=== PATIENT | female | born 1955 | race Caucasian/White ===

== ENCOUNTER → 2017-09-03 | Outpatient (CLI) | payer OTHER ==
[~2017-09-03] MED LIST: BENTYL20 MG PO; CALCIUM 500 + D1 TAB PO; CIPRO 500MG TA500 MG PO; CYCLOBENZAPRINE10 MG PO; FISH OIL1000 MG PO; LIPITOR10 MG PO; LIPITOR20 M1 PO; LORTAB 5/500 501 TAB PO; MECLIZINE25 MG PO; MEDROL 4MG. DOSE4 MG PO; METHOCARBAMOL500 MG PO; NAPROSYN 500MG500 MG PO; TRAMADOL 50MG T50 MG PO; TRAZADONE HYDR100 MG PO; ULTRAM 50 MG TA50 MG PO; [UNRECOGNIZED DRUG - REMARK] PO
--- NOTE | 2017-09-05 12:05 | RADIOLOGY REPORT PS360 ---
DIG MAMM-SCREEN [facility] W/CAD CAD Screening COMPARISON: Digital mammograms 02/12/2016 and 06/19/2012 INDICATION: There is no personal or family history of breast cancer TECHNIQUE: Standard CC and MLO images were obtained. R2 CAD reviewed. FINDINGS: Scattered fiber glandular densities are seen in each breast. There is minimal arterial calcification in the nipple the right breast.. There is a small mole marker upper outer quadrant right breast. There is no suspicious lesion and there are no suspicious microcalcifications. IMPRESSION: However fatty parenchyma no suspicious lesion seen recommend yearly follow-up BI-RADS CATEGORY: 2_Benign RECOMMENDED FOLLOWUP: 12M 12 MONTH FOLLOW-UP (A letter has been sent to the patient regarding results of the study.)
== END ==
LOC: RAD 08-26 16:00
DX: Z12.31 Encounter for screening mammogram for malignant neoplasm of breast (principal)
CPT/HCPCS: G0202